=== PATIENT | male | born 1955 | race Caucasian/White ===

== ENCOUNTER 2020-12-31 09:23 | Inpatient (IN) | payer MEDICARE, BC ==
[~2020-12-31] VITALS: Ht 175.3 cm; Wt 80.5 kg
[2020-12-31 09:40] LABS: Calcium, Ionized (POC) 1.14 mmol/L (1.10-1.46); Chloride (POC) 109 mmol/L (98-108); Creatinine (POC) 1.1 mg/dL (0.8-1.3); Glucose (ISTAT POC) 320 mg/dL (70-99); Hemoglobin (POC) 14.3 g/dL (13.5-17.5); Potassium (POC) 3.8 mmol/L (3.5-5.5); Sodium (POC) 139 mmol/L (135-148); Total CO2 (POC) 15 mmol/L (21-32)
[2020-12-31 10:02] LABS: U Amphetamine Screen Not Detected; U Barbituate Screen Not Detected; U Benzodiazapine Screen DETECTED; U Cocaine Screen DETECTED; U Methadone Screen Not Detected; U Methamphetamine Screen Not Detected; U Opiates Screen Not Detected; U Phencyclidine Screen Not Detected
[2020-12-31 10:03] LABS: U Buprenorphine Screen Not Detected; U Cannabinoids Screen DETECTED; U Oxycodone Screen Not Detected; U Propoxyphene Screen Not Detected
[2020-12-31 10:16] LABS: BASOPHILS ABSOLUTE AUTO 0.11 K/mm3 (0.00-0.23); BASOPHILS PERCENT AUTO 1 % (0-2); EOSINOPHILS ABSOLUTE AUTO 0.35 K/mm3 (0.00-0.68); EOSINOPHILS PERCENT AUTO 2 % (0-6); Hematocrit 44.9 % (37.0-53.0); Hemoglobin 13.6 g/dL (13.5-17.5); IMMATURE GRAN ABSOLUTE AUTO 0.75 K/mm3 (0.00-0.10); IMMATURE GRAN PERCENT AUTO 4 % (0-1); LYMPHOCYTES ABSOLUTE AUTO 7.29 K/mm3 (0.84-5.20); LYMPHOCYTES PERCENT AUTO 42 % (21-46); MONOCYTES ABSOLUTE AUTO 1.57 K/mm3 (0.16-1.47); MONOCYTES PERCENT AUTO 9 % (4-13); Mean Corpuscular HGB 33.7 pg (26.0-34.0); Mean Corpuscular HGB Conc 30.3 g/dL (31.5-36.5); Mean Corpuscular Volume 111 fL (80-100); Mean Platelet Volume 11.8 fL (9.1-12.4); NEUTROPHILS ABSOLUTE AUTO 7.26 K/mm3 (1.96-9.15); NEUTROPHILS PERCENT AUTO 42 % (41-73); NRBC Auto 0.6 /100 WBC (0.0-0.2); Platelet Count 168 K/mm3 (150-400); RDW Coefficient Variation 13.7 % (11.7-14.2); RDW Standard Deviation 56.7 fL (35.1-46.3); Red Blood Cell Count 4.03 M/mm3 (4.30-5.90); White Blood Cell Count 17.33 K/mm3 (4.00-11.30)
[2020-12-31 10:16] LABS: PCO2 Arterial 47.5 mmHg (35-45); PO2 Arterial 165 mmHg (80-100); pH Blood Arterial 6.83 (7.35-7.45)
[2020-12-31 10:23] LABS: Alanine Aminotransfer (ALT/SGP 46 U/L (12-78); Albumin, Blood 2.7 g/dL (3.4-5.0); Albumin/Globulin Ratio 0.8 (0.8-1.8); Alk Phos 92 U/L (50-136); Anion Gap 20 mmol/L (6-16); Aspartate Aminotrans (AST/SGOT 46 U/L (12-37); Bilirubin, Total 0.4 mg/dL (0.1-1.0); Blood Urea Nitrogen 16 mg/dL (8-24); Bun/Creatinine Ratio 14.4 (12.0-20.0); CO2, Blood 14 mmol/L (21-32); Calcium, Blood 8.6 mg/dL (8.5-10.1); Chloride, Blood 109 mmol/L (98-108); Creatinine, Blood 1.11 mg/dL (0.60-1.20); Globulin, Blood 3.5 g/dL (2.2-4.0); Glomerular Filtration Rate >60 (60-); Glucose, Blood 320 mg/dL (70-99); Sodium, Blood 143 mmol/L (136-145); Total Protein, Blood 6.2 g/dL (6.4-8.2)
[2020-12-31 10:57] LABS: SARS-Cov-2 (COVID-19) PCR, MMC NEGATIVE (NEGATIVE)
[2020-12-31 10:59] LABS: pH Blood Arterial 7.13 (7.35-7.45)
[2020-12-31 11:01] LABS: International Normalized Ratio 1.24; Prothrombin Time Results 12.8 Sec (9.7-11.5)
[2020-12-31 11:32] LABS: PCO2 Arterial 41.9 mmHg (35-45); PO2 Arterial 74.8 mmHg (80-100)
[2020-12-31 11:33] LABS: pH Blood Arterial 7.28 (7.35-7.45)
[2020-12-31 12:18] LABS: PCO2 Arterial 46.6 mmHg (35-45); PO2 Arterial 70.5 mmHg (80-100); pH Blood Arterial 7.22 (7.35-7.45)
[2020-12-31 15:49] LABS: Source, Urine Catheter
--- NOTE | 2020-12-31 15:51 | NUR ---
Friend of pt called in to get update. I have not found a NOK in our EMR. I made contact with self-described, very close friend of pt's, Marline Meléndez. Her # is [phone]. Marline states pt has a sister, who is traveling in [place] right now. She is going to pt's [facility] to try to get sister's number for us and to look for an advanced directive that pt had discussed as being part of a will he had completed. Marline does not believe that pt would want another round of CPR or intubation if he is in a vegetative state. She states he's been a fighter thru two previous cardiac events but would not want to be a full code if prognosis for recovery to [facility] is poor. She states he lives in [facility] but was visiting [place] and has a home here in town also. He had his first cardiac event 12 years ago and recovered well with minimal cardiac damage. Two years ago he had a "massive event" and was hospitalized at [facility] in [facility]. She believes he suffered significant heart damage with that event. She is unsure what surgery or intervention he may have had previously. ICU gas charger updated with above. I will await further info on sister's contact information from Marline and attempt to reach sister for proxy decision making and to update her on her brother's cardiac event and current status.
[2020-12-31 16:11] LABS: Appearance, Urine Clear (Clear); Bilirubin, Urine Neg (Neg); Blood, Urine 2+ (Neg); Color, Urine Yellow (P-Yellow); Glucose Qualitative, Urine Neg (Neg); Ketones, Urine Neg (Neg); Leukocyte Esterase, Urine Neg (Neg); Nitrite, Urine Neg (Neg); Protein, Urine Neg (Neg); Specific Gravity, Urine 1.025 (1.003-1.022); Urobilinogen, Urine NORM (Normal)
[2020-12-31 16:36] LABS: BASOPHILS ABSOLUTE AUTO 0.03 K/mm3 (0.00-0.23); BASOPHILS PERCENT AUTO 0 % (0-2); EOSINOPHILS ABSOLUTE AUTO 0.01 K/mm3 (0.00-0.68); EOSINOPHILS PERCENT AUTO 0 % (0-6); Hematocrit 33.8 % (37.0-53.0); Hemoglobin 11.6 g/dL (13.5-17.5); IMMATURE GRAN ABSOLUTE AUTO 0.24 K/mm3 (0.00-0.10); IMMATURE GRAN PERCENT AUTO 1 % (0-1); LYMPHOCYTES ABSOLUTE AUTO 0.64 K/mm3 (0.84-5.20); LYMPHOCYTES PERCENT AUTO 4 % (21-46); MONOCYTES ABSOLUTE AUTO 1.57 K/mm3 (0.16-1.47); MONOCYTES PERCENT AUTO 9 % (4-13); Mean Corpuscular HGB 33.6 pg (26.0-34.0); Mean Corpuscular HGB Conc 34.3 g/dL (31.5-36.5); Mean Platelet Volume 10.5 fL (9.1-12.4); NEUTROPHILS ABSOLUTE AUTO 14.31 K/mm3 (1.96-9.15); NEUTROPHILS PERCENT AUTO 85 % (41-73); NRBC ABSOLUTE 0.02 K/mm3 (0.00-0.02); NRBC Auto 0.1 /100 WBC (0.0-0.2); Platelet Count 160 K/mm3 (150-400); RDW Coefficient Variation 13.8 % (11.7-14.2); RDW Standard Deviation 49.6 fL (35.1-46.3); Red Blood Cell Count 3.45 M/mm3 (4.30-5.90)
[2020-12-31 16:41] LABS: Mean Corpuscular Volume 98 fL (80-100)
[2020-12-31 16:46] LABS: Bacteria Mod /hpf; Squamous Epithelial Cells Few /hpf (Few); White Blood Cells, Urine 0-2 /hpf (0-5)
--- NOTE | 2020-12-31 16:57 | NUR ---
NOK-Sister Pippa [phone] is flying to [place] and driving to hospital [facility]. Screeners updated and permission obtained from ICU charge preparation technician to be allowed to visit pt whenever she arrives. Pippa has been updated on events of the day, pt's current status and guarded to poor prognosis for recovery from anoxic brain injury. She verbalized understanding to come directly to ER to come in thru screening station there if after 7pm or before 7am tomorrow am. Close friends have also been updated and Marline Medhat [phone] is at bedside currently getting update from bedside nurse. She contacted sister for us and other close friends of Nena. Jonathan Bush [phone] states he is the executor of pt's will and that no advanced directive or designation of POA was done. He urged pt to write a simple will because he knew pt did not have one after his major cardiac event two years ago. is by [place] statute and our policy pt's proxy decision maker as his closest NOK. He has niece and a number of close friends who have called for updates this afternoon. The consensus of pt's sister and close friends that I have spoken with today is that pt is a fighter but he was always clear that if he was in a vegetative or comatose state he wouldn't want ongoing life support. Sister and friends do not believe he would want CPR a third time if his heart stops again. Sister wants him to remain a full code until she arrives late tonight or early am. All staff aware of plan and my conversations with family/friends. I will f/u with sister in am.
--- NOTE | 2020-12-31 18:01 | NUR ---
ADMIT/SHIFT SUMMARY PT ARRIVED TO ICU 7 FROM STAFF PSYCHIATRIST AT 1248. PT IS INTUBATED AND MINIMALLY SEDATED UPON ARRIVAL. SEDATION PLACED ON STANDBY INITIALLY PER DR PARKER'S ORDERS. AFTER ABOUT AN HOUR, PT NOTED TO HAVE SEVERE MYCLONIC JERKING MOVEMENTS NOTED AND PT ASYNCHRONOUS WITH VENT. PROPOFOL RESTARTED AND IS CURRENTLY INFUSING AT 40 MCG/KG/MIN. PT TITRATED OFF EPI GTT QUICKLY AFTER ARRIVAL TO ICU. VITAL SIGNS HAVE REMAINED STABLE. PT WITH PROFUSE BLEEDING FROM RIGHT GROIN ARTERIAL LINE AND COOLING CATH LINE. FEMSTOP IN PLACE INITIALLY AND REMAINS IN PLACE AT THIS TIME. DISCUSSED WITH DR PARKER AND OK TO PULL LINES IF BLEEDING PERSISTS. NS INFUSING AT 150 ML/HR. OGT IN PLACE, CLAMPED AT THIS TIME. CEBALLOS IN PLACE WITH DARK YELLOW URINE OUTPUT NOTED. SBW RESTRAINTS IN PLACE. SEE ASSESSMENTS FOR MORE INFO. WILL CONTINUE TO MONITOR AND REPORT OFF TO ONCOMING RN.
--- NOTE | 2020-12-31 19:30 | NUR ---
ASSUMPTION OF CARE PT REMAINS INTUBATED, VENT SETTINGS AC 22/500/5/30% WITH SPO3 >94%. PT RECEIVING PROPOFOL 40MCG/KG/MIN AND NS 150ML/HR. PT UNRESPONSIVE TO PAINFUL STIMULI. PT'S PUPILS ARE UNEQUAL, BOTH REACTIVE TO LIGHT BUT L PUPIL IS SLUGGISH. SLIGHT DOWNWARD GAZE NOTED. FEM STOP REMAINS IN PLACE OVER ART LINE AND COOLING CATH. FEM STOP REMOVED AND BOTH SITES BEGIN TO OOZE. WET BLOOD NOTED TO BILAT NASAL CAVITIES AND ORAL CAVITY. BLOOD IN MOUTH MAY BE DUE TO BROKEN TOOTH. CEBALLOS REMAINS IN PLACE DRAINING DARK YELLOW URINE. SEE SHIFT ASSESSMENT.
--- NOTE | 2020-12-31 23:00 | NUR ---
SISTER AND FRIEND AT BEDSIDE BRANDIN (SISTER) AND FRIEND ALLISON AT BEDSIDE. UPDATED ON PT'S CONDITION AND ANSWERED QUESTIONS. UPON LEAVING, SISTER TOOK PT'S BELONGINGS BAG. PLAN TO RETURN TOMORROW DURING VISITING HOURS TO OBTAIN ITEMS FROM [employer] IF POSSIBLE AND VISIT PT.
[2021-01-01 04:30] LABS: BASOPHILS ABSOLUTE AUTO 0.01 K/mm3 (0.00-0.23); BASOPHILS PERCENT AUTO 0 % (0-2); EOSINOPHILS PERCENT AUTO 0 % (0-6); Hematocrit 30.3 % (37.0-53.0); Hemoglobin 10.5 g/dL (13.5-17.5); IMMATURE GRAN ABSOLUTE AUTO 0.08 K/mm3 (0.00-0.10); IMMATURE GRAN PERCENT AUTO 1 % (0-1); LYMPHOCYTES ABSOLUTE AUTO 1.02 K/mm3 (0.84-5.20); LYMPHOCYTES PERCENT AUTO 7 % (21-46); MONOCYTES ABSOLUTE AUTO 1.32 K/mm3 (0.16-1.47); MONOCYTES PERCENT AUTO 9 % (4-13); Mean Corpuscular HGB 33.5 pg (26.0-34.0); Mean Corpuscular HGB Conc 34.7 g/dL (31.5-36.5); Mean Corpuscular Volume 97 fL (80-100); NEUTROPHILS PERCENT AUTO 84 % (41-73); Platelet Count 142 K/mm3 (150-400); RDW Coefficient Variation 14.1 % (11.7-14.2); RDW Standard Deviation 49.7 fL (35.1-46.3); Red Blood Cell Count 3.13 M/mm3 (4.30-5.90); White Blood Cell Count 14.73 K/mm3 (4.00-11.30)
[2021-01-01 04:54] LABS: Alanine Aminotransfer (ALT/SGP 58 U/L (12-78); Albumin, Blood 2.4 g/dL (3.4-5.0); Albumin/Globulin Ratio 0.9 (0.8-1.8); Alk Phos 58 U/L (50-136); Anion Gap 9 mmol/L (6-16); Aspartate Aminotrans (AST/SGOT 89 U/L (12-37); Bilirubin, Total 0.5 mg/dL (0.1-1.0); Blood Urea Nitrogen 22 mg/dL (8-24); Bun/Creatinine Ratio 22.7 (12.0-20.0); CO2, Blood 21 mmol/L (21-32); Calcium, Blood 7.1 mg/dL (8.5-10.1); Chloride, Blood 115 mmol/L (98-108); Creatinine, Blood 0.97 mg/dL (0.60-1.20); Globulin, Blood 2.7 g/dL (2.2-4.0); Glomerular Filtration Rate >60 (60-); Glucose, Blood 120 mg/dL (70-99); Magnesium, Blood 2.1 mg/dL (1.6-2.4); Potassium, Blood 3.8 mmol/L (3.5-5.5); Sodium, Blood 145 mmol/L (136-145); Total Protein, Blood 5.1 g/dL (6.4-8.2)
--- NOTE | 2021-01-01 05:46 | NUR ---
SHIFT ASSESSMENT PT REMAINS INTUBATED. VENT SETTINGS AC 22/500/5/30%. PT RECEIVING PROPOFOL 40MCG/KG/MIN AND NS 150ML/HR. PT HAD A COUPLE EPISODES OF GRIMACING AND INCREASED RR, MEDICATED WITH FENTANYL PER EMAR. WITH INCREASED RR, PT'S CHEST SIGNIFICANTLY RISES AND FALL AND WITH PALPATION GRINDING FEELING OF RIBS CAN BE FELT. BOWEL TONES REMAIN ACTIVE. CEBALLOS REMAINS IN PLACE. BY THE END OF SHIFT URINE BECAME VERY CLOUDY AND LARGE AMOUNTS OF SEDIMENT. SHIFT OUTPUT OF 500ML. R GROIN ART LINE AND CENTRAL LINE REMOVED APPROX [id number]. DANIEL AND TRANSPARENT DRESSING APPLIED. AT THE END OF SHIFT, THERE ARE TWO APPROX 4MM ROUND SPOTS OF BLOOD ON DRESSING. SISTER TO VISIT THIS AFTERNOON. WILL REPORT TO ONCOMING RN.
--- NOTE | 2021-01-01 07:15 | NUR ---
Assumed care of pt at 0700. Bedside report received from Maya CEBALLOS and Janelle RN. ETT: 7.5 cm, 24 cm JASON Vent: ACVC 22/500/5/30% Drips: Propofol 40 mcg/kg/min Epinephrine off NS 150 mL/hr
--- NOTE | 2021-01-01 09:00 | NUR ---
SEDATION INTERRUPTION Propofol stopped. After 5 minutes, pt became more sensitive to stimulation and started coughing and fighting ventilator. Pt also developed paradoxical chest movement. Dr Hankins notified and at bedside to assess patient. Plan to restart propofol at previous rate.
--- NOTE | 2021-01-01 11:00 | NUR ---
Summary of phone and in person conversations with pt's sister, Lary, bedside rounding with Austin Sawn and hNi & case conferences with pt's bedside RN. Pt's neurological status remains the primary concern. Sister is awaiting further assessment of prognosis r/t neuro status before making any decision re: code status or goals of care. I received updates on current status/concerns, plan of care from pt's RN and Drs this am. I reviewed with with Lary, who also later received update from Dr Swan. Lary requests and EEG, which was ordered and being done today. Lary's questions were answered and she expressed appreciation for the time with staff for updates and her brother's care. We were not able to accomodate other visitors today and sister updated on visitor policy for future reference. Pt's friends, Marline and Jonathan were able to come to pt's window, while pt's sister in the room visiting cathi. Pal Care to remain available for support to family and helping in keeping them updated on pt status. Pt appears uncomfortable at rest wtih furrowed brow. He experienced at least two rounds of CPR yesterday and is painful/agitated with repositioning attepts per bedside RN. Attempt to lower propofol initiated coughing, resp distress and fighting ventilator. Pt is being medicated for pain prn per eMAR.
--- NOTE | 2021-01-01 14:50 | NUR ---
Pt's sister in to see patient. Andre sent home with the sister, as she is the only family member for this patient. Sister received update from Dr Swan. Departed as gastroenterology technician arrived to perform exam on patient.
--- NOTE | 2021-01-01 15:10 | NUR ---
LATE ENTRY FROM 1400, TUBE FEEDING PIVOT 1.5 INITIATED ORDERED AT 20 ML/ HR
--- NOTE | 2021-01-01 15:27 | NUR ---
INDUSTRIAL MAINTENANCE MANAGER ALARMING, VTACH NOTED. DEBURRER AT BEDSIDE. RNX 2 TO BEDSIDE, AGITATION NOTED, SEDATION OFF FOR EEG WHICH IS IN PROGRESS. FENTANYL 50MCG IVP ADMINISTERED ORDERED, PROPFOL REINITIATED @ PREVIOUS RATE. DR. SCHAEFER NOTIFIED AND TO BEDSIDE. ORDERS RECEIVED AND CARRIED OUT. DEBURRER REMAINS AT BEDSIDE, TESTING IN PROGRESS. PAINFUL STIMULI INITIATED PER DEBURRER TESTING WITHDRAWS FROJM PAINFUL TO STIMULI TO LOWER EXTREMITIES x 2. NO REPSONSE TO UPPER EXTREMITIES. SINUS RYTHM NOTED WITH PAC'S. RN REMAINS AVAILABLE, CONTINUES TO MONITOR STATUS.
[2021-01-01 16:30] LABS: Anion Gap 7 mmol/L (6-16); Blood Urea Nitrogen 20 mg/dL (8-24); Bun/Creatinine Ratio 23.6 (12.0-20.0); CO2, Blood 21 mmol/L (21-32); Chloride, Blood 116 mmol/L (98-108); Creatinine, Blood 0.85 mg/dL (0.60-1.20); Glomerular Filtration Rate >60 (60-); Glucose, Blood 123 mg/dL (70-99); Potassium, Blood 3.4 mmol/L (3.5-5.5); Sodium, Blood 144 mmol/L (136-145)
[2021-01-01 17:32] LABS: Troponin I 0.5 ng/mL (0.000-0.040)
--- NOTE | 2021-01-01 17:47 | NUR ---
ADMIT SP CARDIAC ARREST, SP SUPERVISOR BLOOD INTERVETION STENT PLACEMENT TO RCA NEURO: SEDATED AT THIS TIME PROPOFOL INFUSING @ 40MCG/KG/MIN, PEERLA, PUPILS 2, GAG/COUGH REFLEX NOTED WITH INITIATION OF SUCTION CATHETER RESPONDS TO PAINFUL STIMULI/ NAIL BED PRESSURE TO B LOWER EXTREMITIES. NO RESPONSE TO UPPER EXTREMITIES RESP: REMAINS ON MECHANICAL VENTILATION 7.5 ETT 24 LIPS AV/VC MODE RR 22, TV 500, FIO2 30%, 5 PEEP MODERATE AMOUNT OF THICK APONTE SPUTUM NOTED TO SUCTION. LUNG REMAIN CLEAR TO AUSCULTATION CARDIAC: SR WITH OCCCASIONAL PAC'S NOTED, VTACH RUN NOTED CHARTED WITH SPONTANEOUS RETURN TO SR NO CARDIAC INTERVENTIONS PROVIDED.PHYSICIAN NOTIFIED, LABS COMPLETED ORDERED EKG COMPLETED ORDERED, RESULTS TO MD, ORDERS COMPLETED. CLUBBING NOTED TO EXTREMITIES X 4 SCANT EDEMA NOTED TO RIGHT LOWER EXTREMITY, B UPPER EXTREMITIES. NORMAL HEART TONES NOTED. RIGHT GROIN SITE SOFT TO PALPATION, NO REDNESS, HEAT, SWELLING NOTED. DRIED DRAIANGE NOTED TO DRESSING BRUISING PRESENT GI: OROGASTRIC TUBE IN PLACE TUBE FEEDS INITIATED @ 20ML/ HR ORDERED FLUSH 30ML WATER Q 4HRS. BOWEL SOUNDS PRESSENT ALL QUADRANTS, HYPOACTIVE. : CEBALLOS CATHETER INTACT DRAINING DARK JELENA URINE, SEDIMENT PRESENT. CATHETER CARE PROVIDED SKIN: SEE CARDIAC FOR R GROIN SITE. SCAB NOTED TO RIGHT FOOT REMAINS INTACT PSYCHOSOCIAL: SISTER TO BEDSIDE THIS DATE, PHYSICIAN UPDATED ON STATUS. SISTER EDUCATED TO RESTRAINT USE. DENIES QUESTIONS AT THIS TIME.
[2021-01-01 17:48] LABS: Base Excess Venous -3.4 mmol/L; Bicarbonate Venous 21.4 mmol/L (24.0-30.0); PCO2 Venous 40.3 mmHg (38-42); pH Blood Venous 7.35 (7.34-7.37)
--- NOTE | 2021-01-01 19:46 | NUR ---
ASSUMPTION OF CARE REPORT RECEIVED FROM DAY SHIFT RN. PT INTUBATED AND SEDATED. VENT SETTINGS AC/VC 22/500/+5/30%. PT SEDATED ON PROPOFOL 40MCG WITH PRN FENTANYL IV PUSHES. MODERATE APONTE SPUTUM NOTED WITH SUCTION, DARK BLOOD NOTED WITH ORAL SUCTION. PT SINUS RHYTHM/ST WITH MOVEMENT. NO ACUTE DISTRESS NOTED. SEE SHIFT ASSESSEMNT.
[2021-01-02 03:35] LABS: BASOPHILS ABSOLUTE AUTO 0.02 K/mm3 (0.00-0.23); BASOPHILS PERCENT AUTO 0 % (0-2); EOSINOPHILS ABSOLUTE AUTO 0.01 K/mm3 (0.00-0.68); EOSINOPHILS PERCENT AUTO 0 % (0-6); Hematocrit 29.2 % (37.0-53.0); Hemoglobin 9.9 g/dL (13.5-17.5); IMMATURE GRAN PERCENT AUTO 1 % (0-1); LYMPHOCYTES ABSOLUTE AUTO 1.21 K/mm3 (0.84-5.20); LYMPHOCYTES PERCENT AUTO 9 % (21-46); MONOCYTES ABSOLUTE AUTO 1.28 K/mm3 (0.16-1.47); MONOCYTES PERCENT AUTO 10 % (4-13); Mean Corpuscular HGB 33.6 pg (26.0-34.0); Mean Corpuscular HGB Conc 33.9 g/dL (31.5-36.5); Mean Corpuscular Volume 99 fL (80-100); NEUTROPHILS ABSOLUTE AUTO 10.25 K/mm3 (1.96-9.15); NEUTROPHILS PERCENT AUTO 80 % (41-73); Platelet Count 109 K/mm3 (150-400); RDW Coefficient Variation 14.5 % (11.7-14.2); RDW Standard Deviation 52.3 fL (35.1-46.3); Red Blood Cell Count 2.95 M/mm3 (4.30-5.90); White Blood Cell Count 12.87 K/mm3 (4.00-11.30)
[2021-01-02 03:54] LABS: Albumin, Blood 2.3 g/dL (3.4-5.0); Anion Gap 7 mmol/L (6-16); Blood Urea Nitrogen 19 mg/dL (8-24); Bun/Creatinine Ratio 25.3 (12.0-20.0); CO2, Blood 22 mmol/L (21-32); Calcium, Blood 7.2 mg/dL (8.5-10.1); Chloride, Blood 114 mmol/L (98-108); Creatinine, Blood 0.75 mg/dL (0.60-1.20); Glomerular Filtration Rate >60 (60-); Glucose, Blood 121 mg/dL (70-99); Magnesium, Blood 2.1 mg/dL (1.6-2.4); Potassium, Blood 3.7 mmol/L (3.5-5.5); Sodium, Blood 143 mmol/L (136-145)
[2021-01-02 04:01] LABS: Phosphorus, Blood 1.7 mg/dL (2.5-4.9)
[2021-01-02 04:21] LABS: PCO2 Arterial 27.6 mmHg (35-45); PO2 Arterial 73.7 mmHg (80-100); pH Blood Arterial 7.49 (7.35-7.45)
--- NOTE | 2021-01-02 06:20 | NUR ---
SHIFT SUMMARY PT REMAINS INTUBATED AND SEDATED. PT VENT SETTINGS REMAIN AC/VC 22/500/+5/30%. PT ON PROPOFOL 40MCG/KG/MIN. PRN FENTANYL GIVEN THREE TIMES THROUGH THE SHIFT DUE TO PT GRIMACING. VERSED IV X1 GIVEN TO ANXIETY NOTED PATIENT BREATHING HYPERVENTILATING. AFTER THIS PATIENT WENT INTO TACHY ARRHYTHMIA TO 150S. 12 LEAD DONE- SHOWS SINUS RHYTHM WITH PACS. PT NO LONGER GRIMACING. PIVOT 1.5 INCREASED TO 30ML/HR (GOAL) NO RESIDUAL NOTED. NS DECREASED TO KVO AFTER PIVOT SET TO GOAL. PHOSPHORUS 1.7- BASED ON ELECTROLYTE PROTOCOL POTASSIUM PHOSPHATE ORDERED. REPORT TO BE GIVEN TO DAY SHIFT RN.
--- NOTE | 2021-01-02 06:45 | NUR ---
ASSUMED CARE, RESTING IN BED.RESTRAINTS INTACT, PROPOFOL INFUSING TO RIGHT HAND AT 40MCG/KG/HR. VENTILATOR RR22 30% fI02.
--- NOTE | 2021-01-02 09:20 | NUR ---
DR BECKER @ BEDSIDE, PLACED VENTILATOR ON SPONTANEOUS. SEDATION DECREASED CHARTED. RN REMAINS AVAILABLE AND MONITORING.
--- NOTE | 2021-01-02 09:54 | NUR ---
SPOKE W/ SISTER ROSA ON PHONE UPDATED TO CARE. DR TO CALL FAMILY THIS DATE DENIES QUESTIONS AT THIS TIME
--- NOTE | 2021-01-02 10:13 | NUR ---
REPOSITIONING IN BED BECAME TACHYPNIC RATE UP TO 36, DIAPHORETIC, EYES WITH UPWARD GAZE PUPILS DIALTED @ 3 REMAIN RESPONSIVE TO LIGHT. ADMINISTERED PAIN MEDICATION ORDERED AND CHARTED. DR BECKER TO BEDSIDE, PROPOFOL INCREASED BACK TO 540. VENTILATOR REMAINS ON SPONTANEOUS MODE
--- NOTE | 2021-01-02 11:55 | NUR ---
SPOKE WITH DR. BECKER REGARDING FENTANYL ORDER, PT BECOMES AGITATED, TACHYPNIC WITH ANY POSITION CHANGES, ANY STIMULATION. ORDER RECEIVED AND ON CHART.
--- NOTE | 2021-01-02 14:43 | NUR ---
DR BECKER AT BEDSIDE. SISTER ROSA UPDATED TO STATUS/ POC. RN DISCUSSED WITH MD CURRENT STATUS WITH AGITATION WITH STIMULI. ORDER RECEIVED FOR NOW DOSE OF FENTANYL 50. PHYSICIAN PLACE VENTILATOR BACK TO PREVIOUS SETTINGS AC/VC MODE TV 500 RR 22 FI02 30% PEEP 5. SEDATION TITRATED ORDERED AND CHARTED
--- NOTE | 2021-01-02 18:18 | NUR ---
PUPILS EQUAL AND REACTIVE @ 2, DIAPHORETIC EPISODES THIS DATE, WITH PUPILLARY CHANGES NOTED BUT RETURNING TO BASELINE. COUGH/ GAG REFLEX PRESENT PUPILLARY REFLEX PRESENT. WITHDRAWS FROM PAINFLU STIMULI TO LOWER EXTREMITES. SR NOTED THIS DATE, EDEMA REMAINS PRESENT LASIX ADMINISTERED ORDERED. ETT TUBE REMAINS INTACT PREVIOUSLY CHARTED AC/VC MODE RR 22 TV 500 FIO2 30% PEEP 5. BECAME TACHYPNIC/ AGITATED WITH ANY STIMULATION WHILE ON SPONTANEOUS AND DECREASED SEDATION HAD TO INCREASE SEDATION CHARTED AND ADMINISTER PAIN MEDICATION CHARTED. OG TUBE REMAINS WITH PIVOT 1.5 @ 30 ML/HR WHICH IS GOAL CEBALLOS CATHETER REMAINS INTACT DRAINING JELENA URINE. RIGHT GROIN SITE REMAINS SOFT TO PALPATION NO S/S OF INFECTION DRIED DRAINAGE REMAINS UNCHANGED. SISTER HAS BEEN UPFDATE BY RN AND DR TO POC, CURRENT STATUS.
--- NOTE | 2021-01-02 19:32 | NUR ---
ASSUMPTION OF CARE REPORT RECIEVED FROM DAY SHIFT RN. PT INTUBATED AND SEDATED. PT ON PROPOFOL 50MCG/KG/MIN WITH PRN FENTANYL PUSHES Q1. PT PUPILS EQUAL AND REACTIVE, GAG + COUGH REFLEX. PT WITHDRAWAL FROM NOXIUS STIMULI TO LE. 7.[address], VENT SETTNGS AC/VC 22/500/+5/30%. NO ACUTE DISTRESS NOTED AT THIS TIME. SEE SHIFT ASSESSMENT.
[2021-01-03 04:53] LABS: BASOPHILS ABSOLUTE AUTO 0.01 K/mm3 (0.00-0.23); BASOPHILS PERCENT AUTO 0 % (0-2); EOSINOPHILS ABSOLUTE AUTO 0.04 K/mm3 (0.00-0.68); EOSINOPHILS PERCENT AUTO 0 % (0-6); Hematocrit 23.6 % (37.0-53.0); Hemoglobin 8.2 g/dL (13.5-17.5); IMMATURE GRAN ABSOLUTE AUTO 0.08 K/mm3 (0.00-0.10); IMMATURE GRAN PERCENT AUTO 1 % (0-1); LYMPHOCYTES ABSOLUTE AUTO 0.96 K/mm3 (0.84-5.20); LYMPHOCYTES PERCENT AUTO 10 % (21-46); MONOCYTES ABSOLUTE AUTO 0.92 K/mm3 (0.16-1.47); MONOCYTES PERCENT AUTO 10 % (4-13); Mean Corpuscular HGB 33.9 pg (26.0-34.0); Mean Corpuscular HGB Conc 34.7 g/dL (31.5-36.5); Mean Corpuscular Volume 98 fL (80-100); Mean Platelet Volume 10.8 fL (9.1-12.4); NEUTROPHILS ABSOLUTE AUTO 7.44 K/mm3 (1.96-9.15); NEUTROPHILS PERCENT AUTO 79 % (41-73); Platelet Count 96 K/mm3 (150-400); RDW Coefficient Variation 14.3 % (11.7-14.2); RDW Standard Deviation 51.3 fL (35.1-46.3); Red Blood Cell Count 2.42 M/mm3 (4.30-5.90); White Blood Cell Count 9.45 K/mm3 (4.00-11.30)
[2021-01-03 05:11] LABS: Anion Gap 6 mmol/L (6-16); Blood Urea Nitrogen 19 mg/dL (8-24); Bun/Creatinine Ratio 24.8 (12.0-20.0); CO2, Blood 23 mmol/L (21-32); Calcium, Blood 7.2 mg/dL (8.5-10.1); Chloride, Blood 114 mmol/L (98-108); Creatinine, Blood 0.77 mg/dL (0.60-1.20); Glomerular Filtration Rate >60 (60-); Glucose, Blood 116 mg/dL (70-99); Magnesium, Blood 2.2 mg/dL (1.6-2.4); Phosphorus, Blood 1.9 mg/dL (2.5-4.9); Potassium, Blood 3.2 mmol/L (3.5-5.5); Sodium, Blood 143 mmol/L (136-145)
--- NOTE | 2021-01-03 06:10 | NUR ---
SHIFT SUMMARY PT REMAINS INTUBATED AND SEDATED. UPON SEDATION VACATION, PT WITHDRAWS FROM NOXIUS STIMULI ON LOWER EXTREMITIES DOES NOT FOLLOW COMMANDS. PATIENT BECAME TACHYPENIC, ASYNCHRONOUS WITH THE VENT. PT GRIMACING, PRN FENTANYL GIVEN. PT TRANSFERRED TO CT SCAN WITH TWO HOSPITALITY HOST, RN, AND RT WITH NO ISSUES. PT REMAINS ON VENT SETTINGS AC/VC 22/500/+5/30%. PIVOT 1.5 RUNNING AT 30ML (GOAL). MORNING LAB K(3.2)- ELECTROLYTE PROTOCOL IN PLACE, REPLACEMENT ORDERED. NO ACUTE DISTRESS OR PAIN. REPORT TO BE GIVEN TO DAY SHIFT RN.
--- NOTE | 2021-01-03 08:55 | NUR ---
DR DIETZ TO BEDSIDE DISCUSSED CURRENT STATUS,DR DIETZ DECREASED PROPOFOL RATE TO 25 MCG/KG/HR.
--- NOTE | 2021-01-03 10:18 | NUR ---
dr DIETZ AT BEDSIDE REPORTS HE TURNED PROPOFL OFF MOMENTARILY TO ASSESS STATUS. REPORTS WILL PLACE PROPOFOL BACK ON 2ND TO AGITATION TACHYPNEA. PROPOFL BACK ON AT 40.
--- NOTE | 2021-01-03 14:33 | NUR ---
SISTER ROSA AT BEDSIDE, DR CHRISTIANSEN HAS UPDATED TO STATUS RESULTS OF CT SCAN AND EEG. ROSA REPORTS FAMILY HAS DISCUSSED AND WILL BE WITHDRAWING CARE ONCE NEICE ARRIVES.COMFORT/ SUPPORT PROVIDED. DENIES FURTHER QUESTIONS AT THIS TIME
--- NOTE | 2021-01-03 15:00 | NUR ---
SISTER STANLEY REPORTS SHE WOULD LIKE TO CHANGE CODE STATUS TO DNR. UPDATED CHARGE NURSE. WILL UPDATE
--- NOTE | 2021-01-03 15:19 | NUR ---
UPDATED PHYSICIAN TO FAMILY WISHES RE CODE STATUS
--- NOTE | 2021-01-03 15:30 | NUR ---
ORDER RECEIEVED CHANGE OF CODE STATUS TO DNR, DNR ORDER AND BAND VERIFIED WITH DEENA rn/ CHARGE NURSE. DNR BAND PLACED.
--- NOTE | 2021-01-03 17:40 | NUR ---
PUPILS REMAIN SLUGGISH TO LIGHT @ 2. COUGH AND GAG REFLEX PRESENT DOES NOT RESPOND TO PAINFUL STIMULI, DOES NOT FOLLOW ANY COMMANDS. REMAINS ON VENTILATOR AC/VC MODE RR 22, TV 500, PEEP 5 30% FIO2. BECOMES TACHYPNIC AND DIAPHORETIC AT TIMES, FENTANYL DOES SEEM TO ALLEVIATE THESE EPISODES. REMAINS IN NSR WITH OCCASIONAL PAC'S HAS RECVEIVED ELECTROLYTE REPLACEMENTS THIS DATE. EDEMA REMAINS TO UPPER EXTREMITIES, LEFT MORE THAN RIGHT +2 , EDEMA TO LOWER EXTREMITES REMNAINS +2 SCDS IN USE EXTREMITIES ELEVATED x 4. RECEIVING LASIX CHARTED. OG TUBE INTACT CONTINUOUS FEEDING PIVOT 1.5 @ 30 ML/ HR WHICH IS GAOL. ABDOMEN SOFT TO PALPATION NO BM THIS DATE. CEBALLOS CATHETER REMAINS IN PLACE DRAINING DARK TEA COLORED URINE.
--- NOTE | 2021-01-03 20:38 | NUR ---
ASSUMPTION OF CARE REPORT RECEIVED FROM DAY SHIFT RN. PT INTUBATED AND SEDATED, ON PROPFOL GTT WITH PRN FENTANYL PUSHES. PT DOES NOT WITHDRAWAL TO PAIN FROM UPPER AND LOWER EXTREMITIES. PT DOES HYPERVENTILATE AND IS NOT ASYNCHRONOUS WITH THE VENT WHEN BEING TURNED OR SUCTIONED. PRN FENANTYL GIVEN AND PROPOFOL GTT INCREASED. VENT SETTINGS REMAIN AC/VC 22/350/+5/30%. WILL CONTINUE TO MONITOR. SEE SHIFT ASSESSMENT.
--- NOTE | 2021-01-04 06:06 | NUR ---
SHIFT SUMMARY PATIENT REMAINS INTUBATED AND SEDATED, SEDATION INCREASED DUE TO MULTIPLE EPISODES OF COUGHING AND HYPERVENTILATION. PRN FENTANYL GIVEN 3X THIS SHIFT. NEURO STATUS REMAINS UNCHANGED, DOES NOT FOLLOW COMMANDS, DOES NOT WITHDRAW FROM PAINFUL STIMULI. PUPILS REMAIN EQUAL AND REACTIVE. 2MM & SLUGGISH. PT HAD ONE BM DURING SHIFT, BED BATH PROVIDED. VENT SETTINGS REMAIN UNCHANGED, RN NOTED INCREASED SECRETIONS FROM MOUTH AND ET TUBE, SUCTIONED AND ORAL CARE PROVIDED PRN. REPORT TO BE GIVEN TO DAY SHIFT RN.
[2021-01-04 06:50] LABS: Alanine Aminotransfer (ALT/SGP 30 U/L (12-78); Albumin, Blood 2.1 g/dL (3.4-5.0); Albumin/Globulin Ratio 0.6 (0.8-1.8); Alk Phos 57 U/L (50-136); Anion Gap 7 mmol/L (6-16); Aspartate Aminotrans (AST/SGOT 99 U/L (12-37); Bilirubin, Total 0.5 mg/dL (0.1-1.0); Blood Urea Nitrogen 22 mg/dL (8-24); CO2, Blood 25 mmol/L (21-32); Calcium, Blood 7.9 mg/dL (8.5-10.1); Chloride, Blood 110 mmol/L (98-108); Creatinine, Blood 0.73 mg/dL (0.60-1.20); Globulin, Blood 3.6 g/dL (2.2-4.0); Glomerular Filtration Rate >60 (60-); Glucose, Blood 106 mg/dL (70-99); Magnesium, Blood 2.3 mg/dL (1.6-2.4); Phosphorus, Blood 2.7 mg/dL (2.5-4.9); Potassium, Blood 3.2 mmol/L (3.5-5.5); Sodium, Blood 142 mmol/L (136-145); Total Protein, Blood 5.7 g/dL (6.4-8.2)
--- NOTE | 2021-01-04 07:00 | NUR ---
RECEIVED REPORT ASSUMED CARE, VENTILAOTR SETTING AC/VC MODE 22 RR 500 TV 30 % Fi02, 5 PEEP. PROPOFL INFUSING AT 55MCG/KG/HR.
--- NOTE | 2021-01-04 10:00 | NUR ---
SPOKE WITH DR PARKER RE: POTASSIUM RESULTS.ELECTROLYTE PROTOCOL ORDER ON CHART DOES NOT CORRELATE TO LAB RESULTS. NO ORDERS RECEIVED AT THIS TIME, STATES HE WILL PLACE ORDERS.
--- NOTE | 2021-01-04 11:58 | NUR ---
POWER GLIDE MIDLINE iV TO LEFT UPPER ARM DOES NOT ASPIRATE, FLUSHED WITH 10ML NS, NO RESISTANCE MET. DRESSING CLEAN DRY INTACT
--- NOTE | 2021-01-04 15:00 | NUR ---
SISTER ROSA AT BEDSIDE,TEARFUL. COMFORT/SUPPORT PROVIDED
--- NOTE | 2021-01-04 17:23 | NUR ---
PUPILS REMAIN REACTIVE TO LIGHT @ 2 SLUGGISH. REMAINS UNRESPONSIVE.GAG/ COUGH REFLEX PRESENT. NO RESPONSE TO OBNOXIOUS STIMULI. REMAINS NSR WITH OCCASIONAL PAC/S AND PVC. HAS RECEIVED ELECTROLYTE REPLACEMENTTHIS DATE. EDEMA REMAINS IN UPPER EXTREMITIES, EXTREMITES ELEVATED, LASIX ADMININSTERED ORDERED. VENTILATOR REMAINS IN AC/VA MODE RR 22 TV 500 5 PEEP FI02 30%. HAS EXCESSIVE ORAL SECRETIONS REQUIRING SUCTIONING. LUNG REMAIN CLEAR TO AUSCULTATION. OG TUBE REMINAS WITH CONTINUOS FEEDING OF PIVOT 1.5 @ GOAL RATE OF 30ML/HR. CEBALLOS CATHER REMAINS INTACT DRAINING JELENA/GREEN URINE. SEVERAL COUGHING FITS NOTED THIS DATE WITH MYOCLONIC JERKS NOTED, FENTANYL ADMINISTERED CHARTED. PROPOFOL WAS INCREASED 2ND TO COUGHING FITS/ AGITATION BUT HAVE SINCE BEEN ABLE TO RETURN TO 55 MCG/KG/HR. NO BM NOTED THIS DATE, PASSING GAS
--- NOTE | 2021-01-04 18:00 | NUR ---
Case conferenced with and ICU staff, review of EMR to get update on status and plan of care. Pt's family preparing for EOL care after receiving news of anoxic brain injury and poor prognosis for recovery. Visitor at bedside when I came to unit earlier today. Pal Care to remain available to support family and assist staff.
--- NOTE | 2021-01-04 18:25 | NUR ---
REASSESSED NEURO STATUS @ 1800 CHARTED. GAG REFLEX HAS BEEN WEEK THIS DATE, NO GAG REFLEX NOTED AT THIS TIME. HAS HAD INCREASED ORAL SECRETIONS THIS DATE. INCREASING AGITATION, COUGHING FITS WITH DIAPHORESIS AND TACHYPNEA NOTED PROPOFOL INCREASED BACK TO 60 MCG/KG/HR CHARTED.
--- NOTE | 2021-01-04 21:19 | NUR ---
ASSUMPTION OF CARE REPORT RECEIVED FROM DAY SHIFT RN. PT INTUBATED AND SEDATED ON PROPOFOL GTT @ 60MG/KG/MIN AND PRN FENTANYL PUSHES Q 1. PT DOES NOT FOLLOW COMMANDS OR WITHDRAWAL FROM PAINFUL STIMULI. PUPILS REMAIN 2MM AND REACTIVE TO LIGHT, SLUGGISH. RESTRAINTS IN PLACE TO AVOID SELF EXTUBATION. VENT SETTINGS AC/VC 22/350/+5/30%. SEE SHIFT ASSESSMENT. NO ACUTE DISTRESS NOTED. WILL CONTINUE TO MONITOR.
--- NOTE | 2021-01-04 21:25 | NUR ---
ADMISSION/ASSUMPTION OF CARE 1929- REPORT RECEIVED FROM DAY SHIFT RN. AWAITING PT'S ARRIVAL INTO ICU-6. 2019- PT ADMITTED INTO ICU-6. PT CURRENTLY ON BIPAP 03/05, FIO2 OF 70%. PT CURRENTLY ON PRECEDEX @ 0.7/MG/KG/MIN, CLINIMIX @75ML/HR, AND 1/2 NS @ 75ML/HR. PT CURRENTLY NOT VERBAL, MOANS INTERMITTENTLY, IN RESTRAINTS DUE TO PULLING OFF BIPAP WHEN OFF RESTRAINTS. NO ACUTE DISTRESS NOTED. SEE SHIFT ASSESSMENT. 2099- DAUGHTER CAITLIN CALLED BY RN TO NOTIFY ABOUT TRANSFER TO ICU-6. ALL QUESTIONS ANSWERED.
[2021-01-05 03:33] LABS: BASOPHILS ABSOLUTE AUTO 0.03 K/mm3 (0.00-0.23); BASOPHILS PERCENT AUTO 0 % (0-2); EOSINOPHILS ABSOLUTE AUTO 0.16 K/mm3 (0.00-0.68); EOSINOPHILS PERCENT AUTO 2 % (0-6); Hematocrit 25.4 % (37.0-53.0); Hemoglobin 8.8 g/dL (13.5-17.5); IMMATURE GRAN ABSOLUTE AUTO 0.13 K/mm3 (0.00-0.10); IMMATURE GRAN PERCENT AUTO 1 % (0-1); LYMPHOCYTES ABSOLUTE AUTO 1.14 K/mm3 (0.84-5.20); LYMPHOCYTES PERCENT AUTO 11 % (21-46); MONOCYTES ABSOLUTE AUTO 1.22 K/mm3 (0.16-1.47); MONOCYTES PERCENT AUTO 12 % (4-13); Mean Corpuscular HGB 33.3 pg (26.0-34.0); Mean Corpuscular HGB Conc 34.6 g/dL (31.5-36.5); Mean Corpuscular Volume 96 fL (80-100); NEUTROPHILS ABSOLUTE AUTO 7.54 K/mm3 (1.96-9.15); NEUTROPHILS PERCENT AUTO 74 % (41-73); NRBC ABSOLUTE 0.02 K/mm3 (0.00-0.02); NRBC Auto 0.2 /100 WBC (0.0-0.2); Platelet Count 152 K/mm3 (150-400); RDW Coefficient Variation 14.5 % (11.7-14.2); RDW Standard Deviation 50.4 fL (35.1-46.3); Red Blood Cell Count 2.64 M/mm3 (4.30-5.90); White Blood Cell Count 10.22 K/mm3 (4.00-11.30)
[2021-01-05 03:51] LABS: Alanine Aminotransfer (ALT/SGP 29 U/L (12-78); Albumin/Globulin Ratio 0.5 (0.8-1.8); Alk Phos 66 U/L (50-136); Anion Gap 7 mmol/L (6-16); Aspartate Aminotrans (AST/SGOT 79 U/L (12-37); Bilirubin, Total 0.6 mg/dL (0.1-1.0); Blood Urea Nitrogen 27 mg/dL (8-24); Bun/Creatinine Ratio 34.1 (12.0-20.0); CO2, Blood 24 mmol/L (21-32); Calcium, Blood 7.9 mg/dL (8.5-10.1); Chloride, Blood 110 mmol/L (98-108); Creatinine, Blood 0.79 mg/dL (0.60-1.20); Globulin, Blood 3.9 g/dL (2.2-4.0); Glomerular Filtration Rate >60 (60-); Glucose, Blood 113 mg/dL (70-99); Potassium, Blood 3.2 mmol/L (3.5-5.5); Sodium, Blood 141 mmol/L (136-145); Total Protein, Blood 5.9 g/dL (6.4-8.2)
--- NOTE | 2021-01-05 06:50 | NUR ---
received report assumed care. propofol infusing @ 60. ventilator settings av/vc rr 22 tv 500 peep5 30 % fio2. remains unresponsive.
--- NOTE | 2021-01-05 07:30 | NUR ---
addendum to physical assessment. posturing noted to lower extremities.
--- NOTE | 2021-01-05 13:48 | NUR ---
sister johnson at bedside. discussed current status. comfort/ support provided. denies questions/needs at this time.
--- NOTE | 2021-01-05 17:29 | NUR ---
PUPILS REMAIN SLUGGISH @ 2, COMATOSE STATE, NO GAG REFLEX NOTED COUGH REFLEX PRESENT. POSTURING NOTED, DECORTICATE IN NATURE MORE NOTICABLE WITH COUGHING EPISODES. NO RESPONSE TO PAINFUL STIMULI. REMAINS IN NSR RATE 70-80'S, BP HAS BEEN LABILE CHARTED. DIAPHORESIS, TACHYPNEA NOTED THROUGHOUT DAY. FENTANYL ADMINISNTERED CHARTED, HELPING WITH COUGHING, DIAPHORETIC/ TACHYPNIC EPISODES. SLIGHT DECREASE IN PROPOFOL TO 55 MCG/KG/HR. EDEMA REMAINS IN UPPER EXTREMITES, SCANT EDEMA NOTED TO b HIPS WELL. OG TUBE REMASIN WITH CONTINUOUS FEEDING OF PIVOT 1.5 @ 30ML/ HR WHICH IS GOAL, TOLERATING WIHT NO DIFFICULTY. BM TODAY LOOSE BROWN. ABD SOFT TO PALPATION BS PRESENT ALL QUADRANTS. CEBALLOS INTACT DRAINING TO GRAVITY WITH YELLOW/GREEN URINE NOTED. VENTILATOR SETTINGS REMAIN UNCHANGED, HYPERACTIVE ORAL SECRETIONS SISTER DID VISIT TODAY, COMFORT/SUPPORT PROVIDED. RESTRAINTS HAVE BEEN REMOVED
--- NOTE | 2021-01-05 21:17 | NUR ---
ASSUMPTION OF CARE REPORT RECIEVED BY DAY SHIFT RN. PT INTUBATED AND SEDATED ON PROPOFOL 55 MCG/KG/MIN. FENATNYL PRN Q 1 PRN. PT HYPERVENTILATED AND COUGHING WITH TURNS AND SUCTIONING, FENTANTYL GIVEN AND HELPED WITH COUGHING EPISODES. VENT SETTINGS REMAIN 22/500/+5/35%. PIVOT 1.5 RUNNING AT GOAL. SEE SHIFT ASSESSMENT. WILL CONTINUE TO MONITOR.
[2021-01-06 04:19] LABS: BASOPHILS ABSOLUTE AUTO 0.03 K/mm3 (0.00-0.23); BASOPHILS PERCENT AUTO 0 % (0-2); EOSINOPHILS ABSOLUTE AUTO 0.25 K/mm3 (0.00-0.68); EOSINOPHILS PERCENT AUTO 2 % (0-6); Hemoglobin 8.7 g/dL (13.5-17.5); IMMATURE GRAN ABSOLUTE AUTO 0.21 K/mm3 (0.00-0.10); IMMATURE GRAN PERCENT AUTO 2 % (0-1); LYMPHOCYTES ABSOLUTE AUTO 0.99 K/mm3 (0.84-5.20); LYMPHOCYTES PERCENT AUTO 9 % (21-46); MONOCYTES ABSOLUTE AUTO 1.12 K/mm3 (0.16-1.47); MONOCYTES PERCENT AUTO 10 % (4-13); Mean Corpuscular HGB 33.7 pg (26.0-34.0); Mean Corpuscular HGB Conc 34.8 g/dL (31.5-36.5); Mean Corpuscular Volume 97 fL (80-100); Mean Platelet Volume 10.9 fL (9.1-12.4); NEUTROPHILS ABSOLUTE AUTO 8.82 K/mm3 (1.96-9.15); NEUTROPHILS PERCENT AUTO 77 % (41-73); NRBC ABSOLUTE 0.02 K/mm3 (0.00-0.02); NRBC Auto 0.2 /100 WBC (0.0-0.2); Platelet Count 180 K/mm3 (150-400); RDW Coefficient Variation 14.6 % (11.7-14.2); RDW Standard Deviation 50.8 fL (35.1-46.3); Red Blood Cell Count 2.58 M/mm3 (4.30-5.90); White Blood Cell Count 11.42 K/mm3 (4.00-11.30)
[2021-01-06 04:36] LABS: Alanine Aminotransfer (ALT/SGP 34 U/L (12-78); Albumin/Globulin Ratio 0.5 (0.8-1.8); Alk Phos 72 U/L (50-136); Anion Gap 5 mmol/L (6-16); Aspartate Aminotrans (AST/SGOT 71 U/L (12-37); Bilirubin, Total 0.5 mg/dL (0.1-1.0); Blood Urea Nitrogen 31 mg/dL (8-24); Bun/Creatinine Ratio 44.6 (12.0-20.0); CO2, Blood 25 mmol/L (21-32); Calcium, Blood 8.1 mg/dL (8.5-10.1); Chloride, Blood 112 mmol/L (98-108); Glomerular Filtration Rate >60 (60-); Glucose, Blood 125 mg/dL (70-99); Potassium, Blood 3.5 mmol/L (3.5-5.5); Sodium, Blood 142 mmol/L (136-145)
--- NOTE | 2021-01-06 06:04 | NUR ---
SHIFT SUMMARY PT REMAINS INTUBATED AND SEDATED, PRN FENTANYL GIVEN TO DUE TO COUGHING/HYPERVENTILATING EPISODES. NEURO STATUS HAS NOT CHANGED. REMAINS IN NSR WITH PVCS. REPORT TO BE GIVEN TO DAY SHIFT RN.
--- NOTE | 2021-01-06 09:30 | NUR ---
Case conference with Austin Hankins and Jasbir, pt's RN after my phone conversation with pt's sister, Lary this am. Lary is awaiting arrival of her ravindra and AYAD by air travel tomorrow afternoon and planning for w/d of support on Wednesday. She also verbalized that she thought pt was already on comfort care and I explained that comfort care involved extubation. Sister "hopes he dies without having to be extubated". We discussed treatment that may prevent pt from declining on his own. Sister requests that we d/c tube feedings and medications that do not directly contribute to pt's comfort. She states her daughter is really coming to support her. I discussed with sister the option of extubating and transitioning to comfort without family present as she seems to be struggling so with this but she said, no, she wanted to be there, "we've been through thick and thin together and it is just us". I explained to sister that pt was demonstrating suffering and pain and that we were medicated him for his s/s as well as medicating to make ventilation less distressing and medicating to prevent return of seizure activity. I Updated pt's RN and Drs on above conversation. See new orders.
--- NOTE | 2021-01-06 15:00 | NUR ---
Notified by bedside RN that pt's sister would like to speak to me and is reconsidering plan to wait until Wednesday to transition to comfort care. Case conferenced with Dr Hankins and she and I went to bedside together to speak with Lary. Sister is appropriately tearful and grieving the loss of her brother, who she has been very close to. She is requesting that we extubate today after premedicating for comfort, air hunger and agitation that may occure. Comfort care orders and plan discussed among nurse, devulcanizer charger, Dr Hankins and also pt's sister. VO for orders obtained and entered. Support provided. Offered certified registered locksmith visit also or having pt's friend Marline here for her support. Sister declined Manager Scheduling visit or any other visitors. Dr More updated on changes also.
--- NOTE | 2021-01-06 15:18 | NUR ---
PT'S SISTER CAME TO SEE PT AND SPOKE WITH DR VASQUEZ AND DR PARKER. REQUESTED TO SPEAK WITH PALLIATIVE CARE NURSE IN ORDER TO CONVERT PT TO COMFORT CARE. MEDICATIONS ORDERED, ADMINISTERED MORPHINE, ATROPINE AND SCOPALOMINE. PT'S SISTER REQUESTS TO KEEP PROPOFOL RUNNING FOR RELAXATION, SPOKE WITH CHEMICAL OPERATIONS AND TRAINING WHO IS AGREEABLE TO THIS PLAN. PT'S SISTER STATES SHE DOES NOT WANT TO BE IN ROOM WHILE PT IS PASSING, WISHES TO WAIT IN WAITING ROOM AND BE BROUGHT BACK AFTER HE PASSES. RT AWARE THAT MEDS HAVE BEEN GIVEN AND EXTUBATION WILL TAKE PLACE IN 20 MINUTES.
--- NOTE | 2021-01-06 17:45 | NUR ---
Comfort care visit made to sister in ICU waiting room and pt at bedside. Reviewed s/s and process of actively dying that may occur with extubation with sister. She elected not to be present after extubation. I gave her an update on medications being given and pt's current status. Case conferenced with pt's RN and student RN at bedside providing oral suction and comfort measures. Pt has increased work of respiration and audible upper airway/lower airway secretions. Scopolomine patch placed prior to extubation and atropine gtts being given per eMAR. Pt is requiring frequent administration of MS, dilaudid and ativan per eMAR for s/s management, primarily of air hunger, increased RR and HR. Discussed increasing dosing with pt's RN. She feels current medications ordered are sufficient. Reviewed plan of care and communication with family. Will f/u tomorrow if pt remains with us at that time.
--- NOTE | 2021-01-06 18:23 | NUR ---
SHIFT SUMMARY: AT 1640 PT WAS EXTUBATED TO COMFORT CARE. PT'S SISTER DID NOT WANT TO BE IN ROOM WHILE PT IS PASSING SO SHE LEFT HER PHONE NUMBER FOR STAFF TO CALL WHEN PT PASSES. PT HAS PROPOFOL RUNNING AT 60MCG/HR DUE TO POSTURING AND CONVULSING WHEN PROPOFOL IS OFF. DENTAL CHAIRSIDE ASSISTANT AWARE. MASTIC SPRAYER AT BEDSIDE. PT IS REQUIRING MORPHINE, FENTANYL, AND ATIVAN FOR PRNS, WELL ATROPINE GTTS FOR SECRETIONS.
--- NOTE | 2021-01-06 19:58 | NUR ---
Assumed care for patient. Nonresponding. Mouth breathing with loud gurgling sounds. Suctioned for small amount of blood tinged secretion orally and through his nostrils. Repositioned. Updated his sister about his progress. Ativan 1mg iv and Morphine 5 mg iv administered for comfort. Assumed care with propofol 60mcg/kg/min infusing. Saturation at this time is in the 60's on room air. Will continue to monitor
--- NOTE | 2021-01-07 00:01 | NUR ---
Patient medicated with Morhine 10mg, Ativan 2mg and Fentanyl 100mcg for HR above 135 and RR above 35. Repositioned for comfort. Also Atropin 3 drops SL administered for increase secretion orally. will continue to monitor. Patient non responding and comfort care measures maintained.
--- NOTE | 2021-01-07 03:31 | NUR ---
At 0302 patient went into Asystole and after assessing him, he was pronounced by 2 RNs. His sister was notified. Post mortem care to be completed.
--- NOTE | 2021-01-07 09:30 | NUR ---
[facility] FROM [facility] CAME TO COLLECT PT VIA [facility]
== END 2021-01-07 03:02 | DRG 246 ==
LOC: ER 09:23 → ICUW 10:32 → ICUE 10:32
PROVIDERS: Emergency Medicine; Internal Medicine; Internal Medicine Cardiovascular Disease; Internal Medicine Critical Care Medicine; Nurse Practitioner Acute Care; Student in an Organized Health Care Education/Training Program; ADMIT Internal Medicine
PROC: 027035Z Dilation of Coronary Artery, One Artery with Two Drug-eluting Intraluminal Devices, Percutaneous Approach (ICD-10-PCS; principal; 2020-12-31)
PROC: 5A12012 Performance of Cardiac Output, Single, Manual (ICD-10-PCS; 2020-12-31)
PROC: 0BH18EZ Insertion of Endotracheal Airway into Trachea, Via Natural or Artificial Opening Endoscopic (ICD-10-PCS; 2020-12-31)
PROC: B2151ZZ Fluoroscopy of Left Heart using Low Osmolar Contrast (ICD-10-PCS; 2020-12-31)
PROC: 4A023N7 Measurement of Cardiac Sampling and Pressure, Left Heart, Percutaneous Approach (ICD-10-PCS; 2020-12-31)
PROC: B2111ZZ Fluoroscopy of Multiple Coronary Arteries using Low Osmolar Contrast (ICD-10-PCS; 2020-12-31)
PROC: 5A1955Z Respiratory Ventilation, Greater than 96 Consecutive Hours (ICD-10-PCS; 2020-12-31)
PROC: 03HY32Z Insertion of Monitoring Device into Upper Artery, Percutaneous Approach (ICD-10-PCS; 2020-12-31)
PROC: 4A133B1 Monitoring of Arterial Pressure, Peripheral, Percutaneous Approach (ICD-10-PCS; 2020-12-31)
PROC: 4A133J1 Monitoring of Arterial Pulse, Peripheral, Percutaneous Approach (ICD-10-PCS; 2020-12-31)
PROC: 4A10X4Z Monitoring of Central Nervous Electrical Activity, External Approach (ICD-10-PCS; 2021-01-01)
DX: I21.19 ST elevation (STEMI) myocardial infarction involving other coronary artery of inferior wall (principal); J96.01 Acute respiratory failure with hypoxia; E87.2 Acidosis; G93.1 Anoxic brain damage, not elsewhere classified; R65.10 Systemic inflammatory response syndrome (SIRS) of non-infectious origin without acute organ dysfunction; I50.22 Chronic systolic (congestive) heart failure; I46.2 Cardiac arrest due to underlying cardiac condition; F14.10 Cocaine abuse, uncomplicated; E83.39 Other disorders of phosphorus metabolism; Z66 Do not resuscitate; Z51.5 Encounter for palliative care; R73.9 Hyperglycemia, unspecified; Z20.822 Contact with and (suspected) exposure to COVID-19; G25.3 Myoclonus; I49.01 Ventricular fibrillation; R57.0 Cardiogenic shock; F12.10 Cannabis abuse, uncomplicated; I25.10 Atherosclerotic heart disease of native coronary artery without angina pectoris; Z78.1 Physical restraint status
CPT/HCPCS: 31500; 36415; 36556; 36600; 51702; 70450; 71045; 80047; 80048; 80053; 80069; 81001; 82435; 82803; 82947; 83605; 83735; 83880; 84100; 84132; 84295; 84484; 85014; 85025; 85347; 85610; 85730; 87040; 87086; 92950; 93005; 93010; 93458; 94002; 94003; 95819; 96374-59; 96375-59; 99152; 99153; 99285-25; A9270; C1725; C1751; C1769; C1874; C1887; C1894; C8929; C9113; C9600; J0171; J0282; J0461; J1644; J1650; J1940; J1953; J2060; J2250; J2270; J2704; J3010; J3246; J3480; J7030; J7040; J7060; Q9957; Q9967; U0004